=== PATIENT | male | born 1945 | race Caucasian/White ===

== ENCOUNTER 2017-07-30 08:47 | Day surgery (SDC) | payer MEDICARE, OTHER, SELFPAY ==
[2017-07-30] VITALS (7 sets, daily range): BP systolic 167–205; BP diastolic 89–103; PULSE 61–67; RESP 16–18; TEMP 36.3–36.5; O2SAT 94–99; BMI 31.9
[2017-07-30 10:11] LABS: Bedside Glucose 268 mg/dL (70-110)
--- NOTE | 2017-07-30 11:49 | RAD_ITS ---
STUDY: X-RAY - LUMBAR SPINE REASON FOR EXAM: Male, 71 years old. Spinal cord stimulator placement. TECHNIQUE: 2 coned-down view(s) of the lumbar spine were obtained intraoperatively. COMPARISON: None FINDINGS: Intraoperative imaging provided for spinal cord stimulator device. RAD/Lumbar Spine 2 or 3 Views IMPRESSION: Intraoperative imaging provided for spinal cord stimulator placement. Electronically Signed: Leon Prescott MD at 14:30 EDT Tel [phone], Service support ,
[2017-07-30] MEDS: Cefazolin 2 GM in 0.9% Normal Saline 100 ML IV (11:51)
--- NOTE | 2017-07-30 14:20 | NURSING ---
working with [employer] for spinal cord stimulator at this time.
== END 2017-07-30 15:24 | disposition home or self-care (01) ==
LOC: SDC 08:49 → AC 08:52
PROVIDERS: Visit Provider Anesthesiology Pain Medicine
PROC: (CPT 63685; principal; 2017-07-30 10:45)
DX: M96.1 Postlaminectomy syndrome, not elsewhere classified (principal); M54.16 Radiculopathy, lumbar region; I25.10 Atherosclerotic heart disease of native coronary artery without angina pectoris; I10 Essential (primary) hypertension; E78.00 Pure hypercholesterolemia, unspecified; E11.9 Type 2 diabetes mellitus without complications; Z79.4 Long term (current) use of insulin; Z79.84 Long term (current) use of oral hypoglycemic drugs; Z79.899 Other long term (current) drug therapy
CPT/HCPCS: 63650; 63685; 72100; 76000; 82962; J7120; J3490